=== PATIENT | female | born 1990 | race Caucasian/White ===

== ENCOUNTER 2016-10-16 09:05 | Emergency (ER) | payer OTHER ==
[~2016-10-16] VITALS: Ht 149.9 cm; Wt 99.8 kg
[2016-10-16 09:05] VITALS: BP_SYST 98
[2016-10-16 10:06] VITALS: BP_SYST 118
== END 2016-10-16 10:08 | disposition home or self-care (01) ==
LOC: SED 09:05
DX: S63.693A Other sprain of left middle finger, initial encounter (principal); W22.8XXA Striking against or struck by other objects, initial encounter; Y93.89 Activity, other specified; Y92.89 Other specified places as the place of occurrence of the external cause; Y99.8 Other external cause status
CPT/HCPCS: 99284

== ENCOUNTER 2017-02-11 11:27 | Emergency (ER) | payer OTHER ==
[~2017-02-11] VITALS: Ht 149.9 cm; Wt 104.3 kg
[2017-02-11 11:52] VITALS: BP_SYST 115
[2017-02-11 12:54] LABS: BASOPHILS % (AUTO) 0.5 % (0.0-2.0); EOSINOPHILS # (AUTO) 0.1 K/uL (0.0-0.4); EOSINOPHILS % (AUTO) 1.1 % (0.0-4.0); HEMATOCRIT 37.5 % (36-48); HEMOGLOBIN 12.5 g/dL (12.0-16.0); LYMPHOCYTES # (AUTO) 1.8 K/uL (1.0-5.5); LYMPHOCYTES % (AUTO) 21.6 % (20.5-51.5); MEAN CORPUSCULAR HEMOGLOBIN 28 pg (27-31); MEAN CORPUSCULAR HGB CONC 33 % (32-36); MEAN CORPUSCULAR VOLUME 85 fL (79.0-98.0); MONOCYTES # (AUTO) 0.2 K/uL (0.0-1.0); MONOCYTES % (AUTO) 2.6 % (1.7-9.3); NEUTROPHILS # (AUTO) 6.2 K/uL (1.8-7.7); NEUTROPHILS % (AUTO) 74.2 % (40.0-70.0); PLATELET COUNT (AUTO) 277 K/uL (130-430); RED BLOOD CELL COUNT(AUTO) 4.42 MIL/uL (4.2-6.2); RED CELL DISTRIBUTION WIDTH 13.6 % (9.0-15.0); WHITE BLOOD COUNT (AUTO) 8.3 K/uL (4.8-10.8)
[2017-02-11 12:55] LABS: BILIRUBIN,URINE NEGATIVE (NEGATIVE); BLOOD, URINE 3+ (NEGATIVE); CLARITY/URINE CLEAR (CLEAR); COLOR,URINE YELLOW (YELLOW); GLUCOSE,URINE NEGATIVE (NEGATIVE); KETONES,URINE NEGATIVE (NEGATIVE); LEUKOCYTE ESTERASE ,URINE NEGATIVE (NEGATIVE); NITRITE, URINE NEGATIVE (NEGATIVE); PH,URINE 5.5 (5.0-8.0); PROTEIN URINE NEGATIVE (NEGATIVE); UROBILINOGEN,URINE 0.2 (0.2-1.0)
[2017-02-11 12:58] LABS: CREATININE 0.82 mg/dL (0.55-1.30); POTASSIUM 3.8 mmol/L (3.5-5.1)
[2017-02-11 13:02] LABS: BACTERIA,URINE FEW /HPF (None Seen); MUCUS,URINE None Seen /LPF (None Seen); WBC,URINE NONE SEEN /HPF (0-3)
[2017-02-11 13:09] LABS: ALBUMIN 3.4 g/dL (3.4-4.8); TOTAL BILIRUBIN 0.3 mg/dL (0.0-1.0)
[2017-02-11 13:49] VITALS: BP_SYST 110
== END 2017-02-11 13:49 | disposition home or self-care (01) ==
LOC: SED 11:27
DX: N93.9 Abnormal uterine and vaginal bleeding, unspecified (principal); Z90.49 Acquired absence of other specified parts of digestive tract
CPT/HCPCS: 36415; 76801; 76817; 80053; 81000-TC; 81025; 84702-TC; 85025; 86900; 86901; 99285

== ENCOUNTER 2019-05-07 02:32 | Emergency (ER) | payer MEDICAID ==
[~2019-05-07] VITALS: Ht 144.8 cm; Wt 95.3 kg
[2019-05-07 02:34] VITALS: BP_SYST 130
[2019-05-07] MEDS ORDERED: ONDANSETRON HCL 4 MG/2 ML VIAL IVP ONE (04:00)
[2019-05-07] MEDS ORDERED: NACL 0.9% 1,000 ML IV ONE (04:00)
[2019-05-07 05:34] LABS: BASOPHILS # (AUTO) 0.1 K/uL (0.0-0.2); BASOPHILS % (AUTO) 0.7 % (0.0-2.0); EOSINOPHILS % (AUTO) 0.1 % (0.0-4.0); HEMATOCRIT 37.4 % (36-48); HEMOGLOBIN 13.2 g/dL (12.0-16.0); LYMPHOCYTES # (AUTO) 1.3 K/uL (1.0-5.5); LYMPHOCYTES % (AUTO) 14.2 % (20.5-51.5); MEAN CORPUSCULAR HEMOGLOBIN 31 pg (27-31); MEAN CORPUSCULAR HGB CONC 35 % (32-36); MEAN CORPUSCULAR VOLUME 87 fL (79.0-98.0); MONOCYTES # (AUTO) 0.3 K/uL (0.0-1.0); NEUTROPHILS # (AUTO) 7.6 K/uL (1.8-7.7); PLATELET COUNT (AUTO) 272 K/uL (130-430); RED BLOOD CELL COUNT(AUTO) 4.31 MIL/uL (4.2-6.2); WHITE BLOOD COUNT (AUTO) 9.3 K/uL (4.8-10.8)
[2019-05-07 05:55] LABS: ANION GAP 9 (5-15); CALCIUM 8.8 mg/dL (8.4-11.0); CHLORIDE 108 mmol/L (98-107); CREATININE 0.65 mg/dL (0.55-1.30); GLUCOSE 120 mg/dL (70-99); POTASSIUM 3.8 mmol/L (3.5-5.1); SODIUM SERUM 143 mmol/L (136-145); UREA NITROGEN, BLOOD 6 mg/dL (8-21)
[2019-05-07 06:04] LABS: GFR AFRICAN AMERICAN 137 mL/min (>90)
[2019-05-07 06:10] LABS: ALANINE AMINOTRANSFERASE 42 U/L (12-78); ALBUMIN 3.7 g/dL (3.4-4.8); ALCOHOL, BLOOD 151 mg/dL (<10); ASPARTATE AMINOTRANSFERASE 15 U/L (10-37); HCG,QUANTITATIVE 0 mIU/ML (0-6); TOTAL BILIRUBIN 0.1 mg/dL (0.0-1.0)
[2019-05-07 06:12] LABS: ACETAMINOPHEN < 1 ug/mL (1-30)
[2019-05-07 07:03] LABS: PROTHROMBIN TIME 9.6 SECS (9.5-12.5)
[2019-05-07 08:47] VITALS: BP_SYST 114
== END 2019-05-07 08:47 | disposition home or self-care (01) ==
LOC: SED 02:32
DX: S09.90XA Unspecified injury of head, initial encounter (principal); F10.129 Alcohol abuse with intoxication, unspecified; R11.10 Vomiting, unspecified; Y90.6 Blood alcohol level of 120-199 mg/100 ml; W22.8XXA Striking against or struck by other objects, initial encounter; Y93.89 Activity, other specified; Y92.89 Other specified places as the place of occurrence of the external cause; Y99.8 Other external cause status
CPT/HCPCS: 36415; 70450; 72125; 80053; 84484; 84702; 85025; 85610; 85730; 93005; 96360; 99284; G0480; G0481; G0482; J7030

== ENCOUNTER 2020-01-29 11:53 | Emergency (ER) | payer MEDICAID ==
[~2020-01-29] VITALS: Ht 149.9 cm; Wt 101.6 kg
[2020-01-29 12:01] VITALS: BP_SYST 120
[2020-01-29 14:36] VITALS: BP_SYST 120
== END 2020-01-29 14:36 | disposition home or self-care (01) ==
LOC: SED 11:53
DX: U07.1 COVID-19 (principal); J32.9 Chronic sinusitis, unspecified
CPT/HCPCS: 36415; 86403; 87081; 99283

== ENCOUNTER 2020-03-20 17:56 | Emergency (ER) | payer SELFPAY ==
[~2020-03-20] VITALS: Ht 149.9 cm; Wt 104.3 kg
[2020-03-20 18:15] VITALS: BP_SYST 106
[2020-03-20] MEDS ORDERED: fentaNYL CITRATE/PF 100 MCG/2 ML AMP IM ONE (18:30)
[2020-03-20 19:11] VITALS: BP_SYST 121
== END 2020-03-20 19:11 | disposition home or self-care (01) ==
LOC: SED 17:56
DX: M54.32 Sciatica, left side (principal)
CPT/HCPCS: 73502; 81025; 96372; 99283; J3010

== ENCOUNTER 2020-05-06 11:02 | Emergency (ER) | payer SELFPAY ==
[~2020-05-06] VITALS: Ht 149.9 cm; Wt 105.2 kg
[2020-05-06 11:10] VITALS: BP_SYST 122
--- NOTE | 2020-05-06 11:13 | NUR ---
PLACED IN BED 2 [facility]
--- NOTE | 2020-05-06 11:15 | NUR ---
Pt bib EMS from home with c/o left knee pain, s/p fall. Rates pain 6/10, denies any other trauma at this time. V/S stable, pt resting in bed, will continue to monitor.
--- NOTE | 2020-05-06 11:25 | NUR ---
ER Dr. Miller at bedside examining patient.
[2020-05-06] MEDS ORDERED: KETOROLAC TROMETHAMINE 60 MG/2 ML VIAL IM ONE (11:30)
--- NOTE | 2020-05-06 11:46 | NUR ---
Radiology at bedside for x-ray
[2020-05-06 13:02] VITALS: BP_SYST 122
--- NOTE | 2020-05-06 13:02 | NUR ---
Patient given written and verbal discharge instructions and verbalizes understanding. ER MD discussed with patient the results and treatment provided. Patient in stable condition. ID arm band removed. Rx of Motrin given. Patient educated on pain management and to follow up with PMD. Pain Scale 0. Opportunity for questions provided and answered. Medication side effect fact sheet provided.
== END 2020-05-06 13:02 | disposition home or self-care (01) ==
LOC: SED 11:02
DX: M25.562 Pain in left knee (principal); R03.0 Elevated blood-pressure reading, without diagnosis of hypertension; F17.200 Nicotine dependence, unspecified, uncomplicated; Z90.49 Acquired absence of other specified parts of digestive tract; Y08.89XA Assault by other specified means, initial encounter; Y93.89 Activity, other specified; Y92.096 Garden or yard of other non-institutional residence as the place of occurrence of the external cause; Y99.8 Other external cause status
CPT/HCPCS: 29505; 73564; 96372; 99283; J1885

== ENCOUNTER 2022-01-31 05:11 | Emergency (ER) | payer BC, MEDICAID ==
[~2022-01-31] VITALS: Ht 149.9 cm; Wt 98.4 kg
[2022-01-31 05:25] VITALS: BP_SYST 133
[2022-01-31] MEDS ORDERED: IPRATROPIUM/ALBUTEROL SULFATE 3 ML AMPUL.NEB (DUONEB) INH ONE (05:45)
[2022-01-31 06:26] LABS: BASOPHILS # (AUTO) 0.2 K/uL (0.0-0.2); BASOPHILS % (AUTO) 3.2 % (0.0-2.0); EOSINOPHILS # (AUTO) 0.4 K/uL (0.0-0.4); EOSINOPHILS % (AUTO) 7.1 % (0.0-4.0); HEMATOCRIT 37.7 % (36-48); HEMOGLOBIN 13.1 g/dL (12.0-16.0); LYMPHOCYTES # (AUTO) 0.8 K/uL (1.0-5.5); LYMPHOCYTES % (AUTO) 15.1 % (20.5-51.5); MEAN CORPUSCULAR HEMOGLOBIN 29 pg (27-31); MEAN CORPUSCULAR HGB CONC 35 % (32-36); MEAN CORPUSCULAR VOLUME 84 fL (79.0-98.0); MONOCYTES # (AUTO) 0.4 K/uL (0.0-1.0); NEUTROPHILS # (AUTO) 3.7 K/uL (1.8-7.7); NEUTROPHILS % (AUTO) 67.6 % (40.0-70.0); PLATELET COUNT (AUTO) 214 K/uL (130-430); RED BLOOD CELL COUNT(AUTO) 4.49 MIL/uL (4.2-6.2); RED CELL DISTRIBUTION WIDTH 14.6 % (9.0-15.0); WHITE BLOOD COUNT (AUTO) 5.4 K/uL (4.8-10.8)
[2022-01-31] MEDS ORDERED: KETOROLAC TROMETHAMINE 60 MG/2 ML VIAL IM ONE (06:30)
[2022-01-31] MEDS ORDERED: LORATADINE 10 MG TABLET PO ONE (06:30)
[2022-01-31 07:12] LABS: ANION GAP 9 (5-15); CALCIUM 8.2 mg/dL (8.4-11.0); CHLORIDE 103 mmol/L (98-107); CREATININE 0.78 mg/dL (0.55-1.30); GLUCOSE 105 mg/dL (70-99); POTASSIUM 3.8 mmol/L (3.5-5.1); SODIUM SERUM 136 mmol/L (136-145); UREA NITROGEN, BLOOD 11 mg/dL (8-21)
[2022-01-31 07:13] LABS: GFR AFRICAN AMERICAN 109 mL/min (>90)
[2022-01-31 07:27] LABS: ALANINE AMINOTRANSFERASE 35 U/L (12-78); ALBUMIN 3.5 g/dL (3.4-4.8); ASPARTATE AMINOTRANSFERASE 16 U/L (10-37); HCG,QUANTITATIVE 0 mIU/ML (0-6); TOTAL BILIRUBIN 0.2 mg/dL (0.0-1.0)
[2022-01-31 07:49] LABS: BILIRUBIN,URINE NEGATIVE (NEGATIVE); BLOOD, URINE NEGATIVE (NEGATIVE); CLARITY/URINE CLEAR (CLEAR); COLOR,URINE YELLOW (YELLOW); GLUCOSE,URINE NEGATIVE (NEGATIVE); KETONES,URINE NEGATIVE (NEGATIVE); LEUKOCYTE ESTERASE ,URINE NEGATIVE (NEGATIVE); NITRITE, URINE NEGATIVE (NEGATIVE); PH,URINE 6.5 (5.0-8.0); PROTEIN URINE NEGATIVE (NEGATIVE); UROBILINOGEN,URINE 0.2 (0.2-1.0)
[2022-01-31] MEDS ORDERED: CETI10CA PO (08:21)
[2022-01-31] MEDS ORDERED: IBUP-1969 PO (08:21)
[2022-01-31 08:22] VITALS: BP_SYST 144
[2022-01-31] MEDS ORDERED: FLUT16SP16 NS (08:24)
[2022-01-31] MEDS ORDERED: HYDR-3917 PO ×2 (11:17→11:25)
== END 2022-01-31 09:20 | disposition home or self-care (01) ==
LOC: SED 05:11
DX: J06.9 Acute upper respiratory infection, unspecified (principal); R07.89 Other chest pain; R05.9 Cough, unspecified; R50.9 Fever, unspecified; R06.02 Shortness of breath; F12.90 Cannabis use, unspecified, uncomplicated; Z79.899 Other long term (current) drug therapy
CPT/HCPCS: 99284; 71045; 80053; 84702; 83880; 85025; 85379; 84484; 36415; 96372; 81003; J1885; 99285